=== PATIENT | female | born 1970 | race African-American/Black ===

== ENCOUNTER 2023-04-26 15:24 | Emergency (ER) | payer BC ==
[2023-04-26] MEDS ORDERED: Ketorolac Tromethamine 30 MG/ML VIAL ONE (17:21)
== END 2023-04-26 17:18 | disposition home or self-care (01) ==
LOC: CSHERS 15:24
DX: G89.29 Other chronic pain (principal); M54.40 Lumbago with sciatica, unspecified side; I10 Essential (primary) hypertension; E11.9 Type 2 diabetes mellitus without complications
CPT/HCPCS: 96372; 99283; J1885